=== PATIENT | female | born 1975 | race Caucasian/White ===

== ENCOUNTER 2017-05-14 14:05 | Emergency (ER) | payer BC ==
[~2017-05-14] VITALS: Ht 170.2 cm; Wt 67.0 kg
[~2017-05-14 14:05] MED LIST: NAPROXEN500 MG PO; NOHOMEMEDS; PREVACID SOLUTA30 MG PO
[2017-05-14 14:40] LABS: APPEARANCE CLOUDY ((CLEAR)); BILIRUBIN NEGATIVE; BLOOD MODERATE; COLOR AMBER ((YELLOW)); GLUCOSE (STRIP) NEGATIVE; KETONES NEGATIVE; LEUKOCYTES SMALL; NITRITE NEGATIVE; PROTEIN (STRIP) 100; SPECIFIC GRAVITY 1.024 (1.000-1.030)
[2017-05-14 15:04] LABS: CHLORIDE 106 mEq/L (99-109); POTASSIUM 3.4 mEq/L (3.7-5.4); SODIUM 139 mEq/L (136-147)
[2017-05-14 15:06] LABS: GLUCOSE 102 mg/dL (70-99)
[2017-05-14 15:09] LABS: BACTERIA 1+ /HPF; EPITHELIAL CELLS 2+ /HPF; MUCUS 3+ /LPF; RED BLOOD CELLS 0-5 /HPF (0-5); UCUL ADDED? NO; WHITE BLOOD CELLS 0-5 /HPF (0-5)
[2017-05-14 15:10] LABS: CREATININE 0.6 mg/dL (0.6-1.3); GFR ESTIMATE (CALCULATED) > 59 mL/min/
[2017-05-14 15:11] LABS: UREA NITROGEN (BUN) 13 mg/dL (9-23)
[2017-05-14 15:12] LABS: HEMATOCRIT 32.4 % (36.0-46.0); HEMOGLOBIN 8.5 G/DL (11.9-15.5); MCH 16.3 PG (29.0-34.0); MCHC 26.2 G/DL (30.0-36.0); MCV 62.3 FL (83-99); PLATELET COUNT 334 K/uL (156-360); RBC DIS.WIDTH-CV 21.8 % (11.8-14.6); RBC DIS.WIDTH-SD 44.9 % (39-53); WHITE BLOOD COUNT 2.9 K/uL (4.1-10.2)
[2017-05-14 15:19] LABS: QUANTITATIVE HCG < 4.0 MIU/ML
[2017-05-14 16:02] LABS: ALBUMIN 4.4 g/dL (3.2-4.8)
[2017-05-14 16:04] LABS: TOTAL PROTEIN 8.2 g/dL (6.4-8.3)
[2017-05-14 16:06] LABS: TOTAL BILIRUBIN 0.6 mg/dL (0.0-1.0)
[2017-05-14 16:07] LABS: ALKALINE PHOSPHATASE 52 IU/L (3-129)
[2017-05-14 16:10] LABS: ALT (GPT) 19 IU/L (3-49); AST (GOT) 28 IU/L (2-34); DIRECT BILIRUBIN 0.2 mg/dL (0.0-0.3)
[2017-05-14 16:11] LABS: LIPASE 82 U/L (1.0-51.0)
[2017-05-14 16:36] VITALS: BP 117/82
== END 2017-05-14 16:37 | disposition home or self-care (01) ==
LOC: EME 14:05
DX: D50.9 Iron deficiency anemia, unspecified (principal); D72.819 Decreased white blood cell count, unspecified; K21.9 Gastro-esophageal reflux disease without esophagitis; Z88.8 Allergy status to other drugs, medicaments and biological substances
CPT/HCPCS: 80048; 80076; 81003; 83690; 84702; 85027; 99281; 99283